=== PATIENT | male | born 1980 | race Caucasian/White ===

== ENCOUNTER 2019-08-03 15:17 | Emergency (ER) | payer OTHER ==
[~2019-08-03] VITALS: Ht 10.2 cm; Wt 109.1 kg
[2019-08-03 15:30] VITALS: BP 124/82; TEMP 97.6
[2019-08-03 16:55] VITALS: PULSE 78
== END 2019-08-03 16:55 | disposition home or self-care (01) ==
LOC: COL.ER 15:17
DX: S61.210A Laceration without foreign body of right index finger without damage to nail, initial encounter (principal); W26.8XXA Contact with other sharp object(s), not elsewhere classified, initial encounter; Y92.009 Unspecified place in unspecified non-institutional (private) residence as the place of occurrence of the external cause

== ENCOUNTER → 2019-08-13 | Outpatient (CLI) | payer SELFPAY ==
[~2019-08-13] MED LIST: CEPHALEXIN500 M1 PO
== END ==
LOC: COL.ER 09:49
DX: Z48.02 Encounter for removal of sutures (principal)

== ENCOUNTER → 2022-02-21 | Outpatient (CLI) | payer BC | LOC: COL.RAD 12:21 | DX: E07.89 Other specified disorders of thyroid (principal); R59.9 Enlarged lymph nodes, unspecified ==

== ENCOUNTER → 2024-03-02 | Outpatient (CLI) | payer BC | LOC: COL.RAD 15:07 | DX: E07.89 Other specified disorders of thyroid (principal); E04.1 Nontoxic single thyroid nodule ==